=== PATIENT | male | born 2000 | race Caucasian/White ===

== ENCOUNTER 2022-12-11 06:08 | Emergency (ER) | payer OTHER ==
[~2022-12-11] VITALS: Ht 182.9 cm; Wt 81.8 kg
[2022-12-11] MEDS ORDERED: HYDROCODONE/ACETAMINOPHEN 5-325 MG TABLET PO ONE (06:30)
[2022-12-11] MEDS ORDERED: CYCLOBENZAPRINE HCL 10 MG TABLET PO ONE (06:30)
[2022-12-11] MEDS ORDERED: KETOROLAC TROMETHAMINE 30 MG/ML VIAL IM ONE (06:30)
[2022-12-11 07:02] VITALS: TEMP 98.8
[2022-12-11] MEDS ORDERED: MORPHINE SULFATE 4 MG/ML SYRINGE IM ONE (08:15)
[2022-12-11] MEDS ORDERED: LIDOCAINE 5% TRANSDERMAL PATCH TD ONE (08:15)
[2022-12-11] MEDS ORDERED: CYCL-448 PO ×2 (09:28→11:33)
[2022-12-11] MEDS ORDERED: IBUP-1492 PO ×2 (09:28→11:33)
[2022-12-11] MEDS ORDERED: LIDO700A15 TP ×2 (09:28→11:33)
[2022-12-11 09:35] VITALS: BP 118/66; PULSE 68; RESP 16
== END 2022-12-11 10:06 | disposition home or self-care (01) ==
LOC: EMS 06:13
DX: M43.6 Torticollis (principal)
CPT/HCPCS: 72125; 99285; 96372; J1885; J2270; 99284